=== PATIENT | female | born 1960 ===

== ENCOUNTER 2024-11-24 08:30 | Inpatient (IN) | payer OTHER ==
[~2024-11-24] VITALS: Ht 162.6 cm; Wt 77.1 kg
[2024-11-24] MEDS ORDERED: SYNTHROID50 MCG PO (10:38)
[2024-11-24] MEDS ORDERED: COZAAR50 MG PO (10:38)
[2024-11-24] MEDS ORDERED: ECOTRIN81 MG PO (10:38)
[2024-11-24] MEDS ORDERED: JANUVIA100 MG PO (10:38)
[2024-11-24] MEDS ORDERED: SIMVASTATIN5 MG (10:39)
[2024-11-24] MEDS ORDERED: DAILY VALUE1 EACH PO (10:39)
[2024-11-24] MEDS ORDERED: [UNRECOGNIZED DRUG - OTHER] (10:40)
[2024-11-24 10:44] VITALS: BP 170/100
[2024-11-24 10:44] LABS: BASO % 0.4 % (0.1-1.2); EOS # 0.11 (0.04-0.54); EOS % 1.9 % (0.7-7.0); LYMPH # 2.33 (1.18-3.74); LYMPH % 41.2 % (19.3-53.1); MEAN PLATELET VOLUME 10.20 fl (9.4-12.4); MONO # 0.39 (0.24-0.82); MONO % 6.9 % (4.7-12.5); NEUT # 2.79 (1.56-6.13); NEUT % 49.4 % (34.0-71.1); RED CELL DISTRIBUTION WIDTH 13.4 % (11.6-14.4)
[2024-11-24 11:01] LABS: COVID-19 AG NEGATIVE (NEGATIVE)
[2024-11-24 11:13] LABS: INR 1.02
[2024-11-24 11:19] LABS: ALT/SGPT 20.0 U/L (12-78); AST/SGOT 18.0 U/L (15-37); BILIRUBIN TOTAL 0.44 mg/dL (0.3-1.2); BUN CREA RATIO 18.0 (7.0-25.0); CHOL HDL RATIO 2.4 (0-5.0); CREATININE SERUM 0.77 mg/dL (0.55-1.02); GFR 75.0; GLOBULINA 3.7 G/DL (2.4-3.5); GLUCOSE FASTING 140.0 mg/dL (65-100); HDL 72.0 mg/dl (40-60); LDL 82.0 mg/dl (0-130); OSMOLALITY SERUM 286.0 MOSM/KG (275-295); VLDL 16.0 (0-39)
[2024-11-24 11:40] LABS: URINE APPEARANCE Clear; URINE BILIRRUBIN Negative (NEGATIVE); URINE BLOOD Negative; URINE COLOR Yellow; URINE GLUCOSE Negative (NEGATIVE); URINE KETONE Negative (NEGATIVE); URINE LEUKOCYTE Negative; URINE NITRATE Negative; URINE PROTEIN Negative (NEGATIVE); URINE UROBILINOGEN 0.2 E.U./dl
[2024-11-24 11:45] LABS: URINE BACTERIA 8.4 uL (0.0-1933); URINE RBC 2.9 uL (0.0-20.8)
[2024-11-24 11:51] LABS: URINE CAST 0.00 uL (0.0-1.40); URINE EPITHELIAL CELLS 1.3 uL (0.0-38.8); URINE WBC 1.0 uL (0.0-23.2)
[2024-11-24 13:20] LABS: RH POSITIVE
[2024-12-01] MEDS ORDERED: CEFAZOLIN SODIUM 1,000 MG VIAL ONE (06:45)
[2024-12-01] MEDS ORDERED: POVIDONE-IODINE 118 ML BOTT TOP ONE (07:05)
[2024-12-01] MEDS ORDERED: BUPIVACAINE HCL/MPF 0.5% 30ML VIAL ONE (07:05)
[2024-12-01] MEDS ORDERED: TRANEXAMIC ACID 100MG/1ML (1000MG) AMPUL ONE (07:06)
[2024-12-01] MEDS ORDERED: LIDOCAINE HCL 1%/EPINEPHRINE 20ML VIAL IJ ONE (07:06)
[2024-12-01] MEDS ORDERED: VANCOMYCIN HCL 1,000 MG VIAL ONE (07:06)
[2024-12-01] MEDS ORDERED: KETOROLAC TROMETHAMINE 60 MG VIAL IM ONE (07:47)
[2024-12-01] MEDS ORDERED: MORPHINE SULFATE 4 MG/ML CARTRIDGE IV ONE (08:30)
[2024-12-01] MEDS ORDERED: TRANEXAMIC ACID 100MG/1ML (1000MG) AMPUL IV ONE (08:30)
[2024-12-01] MEDS ORDERED: OxyCODONE HCL 5 MG TABLET (ROXICODONE) PO PRN (11:15)
[2024-12-01] MEDS ORDERED: SODIUM CHLORIDE 0.45 % 1,000 ML IV SCH (11:15)
[2024-12-01] MEDS ORDERED: MORPHINE SULFATE 4 MG/ML CARTRIDGE IV PRN (11:15)
[2024-12-01] MEDS ORDERED: ONDANSETRON HCL 2 MG/ML VIAL IV PRN (11:15)
[2024-12-01] MEDS ORDERED: ACETAMINOPHEN 500 MG GEL..CAP PO SCH (12:00)
[2024-12-01 12:50] VITALS: BP 119/72; O2SAT 100
[2024-12-01 17:00] VITALS: BP 139/72; O2SAT 99
[2024-12-01] MEDS ORDERED: CEFAZOLIN SODIUM 1,000 MG VIAL IV SCH (17:00)
[2024-12-01] MEDS ORDERED: GABAPENTIN 300 MG CAPSULE PO SCH (17:00)
[2024-12-02 01:52] VITALS: BP 142/78; O2SAT 98
[2024-12-02] MEDS ORDERED: LEVOTHYROXINE SODIUM 50 MCG TABLET PO SCH (06:00)
[2024-12-02] MEDS ORDERED: LOSARTAN POTASSIUM 50 MG TABLET PO SCH ×2 (06:00→09:00)
[2024-12-02 06:48] LABS: BASO % 0.5 % (0.1-1.2); EOS # 0.23 (0.04-0.54); EOS % 3.5 % (0.7-7.0); LYMPH # 1.59 (1.18-3.74); LYMPH % 23.9 % (19.3-53.1); MEAN PLATELET VOLUME 10.80 fl (9.4-12.4); MONO # 0.76 (0.24-0.82); MONO % 11.4 % (4.7-12.5); NEUT # 4.03 (1.56-6.13); NEUT % 60.5 % (34.0-71.1); RED CELL DISTRIBUTION WIDTH 13.3 % (11.6-14.4)
[2024-12-02 08:43] VITALS: BP 138/46; O2SAT 96
[2024-12-02] MEDS ORDERED: APIXABAN 2.5 MG TABLET PO SCH (09:00)
[2024-12-02] MEDS ORDERED: SENNOSIDES 1 TAB TABLET PO SCH (09:00)
[2024-12-02] MEDS ORDERED: DUI500 PO (12:04)
[2024-12-02] MEDS ORDERED: PERCOCET 5-3251 EACH PO (12:04)
[2024-12-02] MEDS ORDERED: ELIQUIS2.5 MG PO (12:04)
[2024-12-02 12:23] LABS: ALT/SGPT 16.0 U/L (12-78); AST/SGOT 24.0 U/L (15-37); BILIRUBIN TOTAL 0.37 mg/dL (0.3-1.2); BUN CREA RATIO 12.0 (7.0-25.0); CREATININE SERUM 0.65 mg/dL (0.55-1.02); GFR 91.19; GLOBULINA 2.6 G/DL (2.4-3.5); GLUCOSE FASTING 120.0 mg/dL (65-100); OSMOLALITY SERUM 273.0 MOSM/KG (275-295)
[2024-12-02] MEDS ORDERED: Cyanocobalamin/Mecobalamin 1 TAB.SL SL NR (12:35)
[2024-12-03] MEDS ORDERED: Cyanocobalamin/Mecobalamin 1 TAB.SL SL SCH (09:00)
[2024-12-03] MEDS ORDERED: IRON FUM,PS/FOLIC ACID/VITC/B3 1 CAP CAPSULE PO SCH (09:00)
== END 2024-12-02 17:52 | disposition home or self-care (01) | DRG 470 ==
LOC: O/R 12-01 06:00 → SURH 12-01 06:00
PROVIDERS: ADMIT Orthopaedic Surgery; ATTEND Orthopaedic Surgery
PROC: 0MNP0ZZ Release Left Knee Bursa and Ligament, Open Approach (ICD-10-PCS; 2024-12-01)
PROC: 0QUF0JZ Supplement Left Patella with Synthetic Substitute, Open Approach (ICD-10-PCS; 2024-12-01)
PROC: 0QUF0KZ Supplement Left Patella with Nonautologous Tissue Substitute, Open Approach (ICD-10-PCS; 2024-12-01)
PROC: 0SRD0JZ Replacement of Left Knee Joint with Synthetic Substitute, Open Approach (ICD-10-PCS; principal; 2024-12-01 07:00)
DX: M17.12 Unilateral primary osteoarthritis, left knee (principal); Z96.652 Presence of left artificial knee joint; E07.9 Disorder of thyroid, unspecified; E11.9 Type 2 diabetes mellitus without complications; I10 Essential (primary) hypertension; M81.0 Age-related osteoporosis without current pathological fracture